=== PATIENT | male | born 1945 | race Caucasian/White ===

== ENCOUNTER 2017-03-11 15:00 | Emergency (ER) | payer OTHER, MEDICAID ==
[2017-03-11] MEDS ORDERED: NS 500 ML IV ONE (16:29)
--- NOTE | 2017-03-11 16:36 | EDPHY ---
H & P Time Seen by Provider: 03/11/17 16:11 HPI/ROS: HPI Fatigue. 71-year-old male by private vehicle. History of colorectal cancer as well as melanoma. His oncologist is Dr. Carney. He was placed on finasteride about a year and half ago. As side effects of this medication he had weakness, low energy and generalized fatigue. He was placed on hydrocodone and testosterone has a remedy for this. He reports that after a week or 2 of this medication he started feeling much better. Had normal energy and was doing great in the gym working out. He reports that over the last 4 days despite taking his testosterone which she takes once weekly by injection as well as hydrocortisone he has been feeling low on energy and fatigued especially when trying to work out. He is concerned about his testosterone levels. ROS: Constitutional: No fever, no chills. As above. Eyes: No discharge. No changes in vision. ENT: No sore throat. No nasal congestion or rhinorrhea. Respiratory: No cough. No shortness of breath. Cardiac: No chest pain, no palpitations. Gastrointestinal: No abdominal pain, no vomiting, no diarrhea. Genitourinary: No hematuria. No dysuria or increased frequency with urination. Musculoskeletal: No back pain. No neck pain. No myalgias or arthralgias. Skin: No rashes. Neurological: No headache. No focal weakness or altered sensation. Past medical history: As above. Depression. Social history: Nonsmoker. Denies alcohol. Here by himself. Physical Exam: General Appearance: Alert, no distress. This patient is responding to questions appropriately and in full sentences. This patient appears well- hydrated and well-nourished. Eyes: Pupils equal and round no pallor or injection. No lid edema, erythema or injection. Respiratory: There are no retractions, lungs are clear to auscultation with good air movement bilaterally. Cardiovascular: Regular rate and rhythm. No murmur. Gastrointestinal: Abdomen is soft and nontender, no masses, bowel sounds normal. No focal tenderness at McBurney's point. No Payne sign. Neurological: Motor sensory function is grossly intact. Cranial nerves are normal. Gait is normal. Skin: Warm and dry, no rashes. Musculoskeletal: Neck is supple and nontender. Extremities are symmetrical. All joints range without pain or impingement. Psychiatric: No agitation. No depression. Database: EKG: EKG time is 4:55 p.m.; EKG shows a narrow complex normal sinus rhythm with a ventricular rate of 76. The AK, QRS, QT intervals are within normal limits. There are no ST-T wave changes indicative of ischemic or injury pattern. No evidence of right heart strain. Interpreted by me. Imaging: Procedures: Emergency department course: IV placed. Patient was placed on a receiving tank operator. Vital signs reviewed and are normal. Plan will be to check his CBC for anemia or other significant abnormalities as well as electrolytes. I will also obtain a EKG. Assuming these are unremarkable, plan will be to have him follow up with his primary care physician or oncologist, Dr. Carney to have his free and total testosterone levels checked. 5:45 p.m., patient re-evaluated. Resting comfortably at this time. Results of laboratory work discussed with him. Plan will be to have him follow up with his oncologist or primary care physician as above for recheck of his creatinine as well as his free and total testosterone levels. He is in agreement with this plan. Return to emergency department precautions reviewed with him. All of his questions were answered. He was discharged in good condition. Differential Diagnosis: The differential diagnosis on this patient includes but is not limited to medication reaction. Hypothyroid, hypokalemic periodic paralysis, acute coronary syndrome, atrial fibrillation, congestive heart failure, anemia unlikely. This represents a partial list of diagnoses considered. These considerations are based on history, physical exam, past history, reassessment and diagnostic testing. Smoking Status: Never smoked Constitutional: Initial Vital Signs Temperature (C) 37 C 03/11/17 15:06 Heart Rate 87 03/11/17 15:06 Respiratory Rate 17 03/11/17 15:06 Blood Pressure 131/93 H 03/11/17 15:06 O2 Sat (%) 92 03/11/17 15:06 O2 Delivery Mode Room Air Allergies/Adverse Reactions: No Known Allergies Allergy (Verified 03/11/17 15:05) Home Medications: Medication Instructions Recorded Effexor 03/12/16 LaMICtal 03/12/16 Wellbutrin Sr 03/12/16 Zyprexa 03/12/16 Doxycycline Hyclate 03/11/17 Finasteride 03/11/17 Hydrocortisone 03/11/17 TESTOSTERONE 03/11/17 Medical Decision Making - Data Points Laboratory Results: Laboratory Results 03/11/17 16:50 03/11/17 16:50 Medications Given: Discontinued Medications Sodium Chloride (Ns) 500 mls @ 1,000 mls/hr IV EDNOW ONE PRN Reason: Protocol Stop: 03/11/17 16:58 Last Admin: 03/11/17 16:51 Dose: 500 mls Departure - Departure Disposition: Home, Routine, Self-Care Clinical Impression: Fatigue Condition: Good Instructions: Fatigue (ED) Additional Instructions: Read and follow provided instructions. Follow-up with your primary care physician at [facility] or with her oncologist in in the next week for re-evaluation and as discussed, recheck of your creatinine which is a measure of your kidney function as well as your free and total testosterone levels. Continue taking her medications as prescribed. Return to the emergency department for worsening symptoms or other serious concerns. Referrals: [facility] [Other] - As per Instructions Colby Carney MD [Medical Doctor] - As per Instructions
--- NOTE | 2017-03-11 16:57 | CPEKG ---
Heart Rate: 76 RR Interval: 789 P-R Interval: 172 QRSD Interval: 96 QT Interval: 380 QTC Interval: 428 P Preston: 64 QRS Preston: 52 T Wave Preston: 51 EKG Severity - NORMAL ECG - EKG Impression: SINUS RHYTHM Electronically Signed By: Chi Wylie 11-Mar-2017 22:59:16
[2017-03-11 17:06] LABS: % IMMATURE GRANULYOCYTES 0.4 % (0.0-1.1); ABSOLUTE IMMATURE GRANULOCYTES 0.03 10^3/uL (0.00-0.10); ADD DIFF? NO; ADD MORPH? NO; ADD SCAN? NO; ATYPICAL LYMPHOCYTE FLAG 0 (0-99); FRAGMENT RBC FLAG 0 (0-99); HEMOGLOBIN 16.2 g/dL (13.7-17.5); LEFT SHIFT FLG 0 (0-99); LIPEMIA HEMOLYSIS FLAG 90 (0-99); MEAN CELL HEMOGLOBIN CONCENTR. 33.8 g/dL (32.4-36.7); MEAN CELL VOLUME 88.9 fL (81.5-99.8); MEAN PLATELET VOLUME 9.6 fL (8.7-11.7); PLATELET CLUMPS FLAG 20 (0-99); PLATELET COUNT 243 10^3/uL (150-400); RED CELL DISTRIBUTION WIDTH 15.5 % (11.5-15.2)
[2017-03-11 17:19] LABS: ANION GAP 8 mEq/L (8-16); CALCIUM 9.2 mg/dL (8.5-10.4); CARBON DIOXIDE 25 mEq/l (22-31); CHLORIDE 101 mEq/L (97-110); GLUCOSE 88 mg/dL (70-100); POTASSIUM 4.8 mEq/L (3.5-5.2); SODIUM 134 mEq/L (134-144)
[2017-03-11 17:32] LABS: CREATININE 1.5 mg/dL (0.7-1.3); GLOMERULAR FILTRATION RATE 46
[2017-03-11 17:51] VITALS: BP 137/79; PULSE 78; RESP 18; TEMP 98; O2SAT 97
== END 2017-03-11 17:50 | disposition home or self-care (01) ==
DX: R53.83 Other fatigue (principal); E86.9 Volume depletion, unspecified

== ENCOUNTER → 2018-01-20 | Outpatient (CLI) | payer OTHER, MEDICAID ==
[~2018-01-20] MED LIST: GADOBUTROL 10 ML VIAL IVP ONE
== END ==
LOC: FIMAGING 13:46
PROVIDERS: ATTEND Internal Medicine Hematology & Oncology
DX: M25.552 Pain in left hip (principal); R93.8 Abnormal findings on diagnostic imaging of other specified body structures; M16.12 Unilateral primary osteoarthritis, left hip; M25.452 Effusion, left hip; M76.02 Gluteal tendinitis, left hip; M51.36 Other intervertebral disc degeneration, lumbar region; Z85.820 Personal history of malignant melanoma of skin
CPT/HCPCS: 73723; A9585; 82565-PO

== ENCOUNTER 2018-01-21 07:28 | Day surgery (SDC) | payer OTHER, MEDICAID ==
[2018-01-21] MEDS ORDERED: NALOXONE HCL 0.4 MG/ML INJ ONE (07:45)
[2018-01-21] MEDS ORDERED: FLUMAZENIL 0.5 MG/5 ML MDV IVP ONE (07:45)
[2018-01-21] MEDS ORDERED: fentaNYL 100 MCG/2 ML INJ ONE (07:46)
[2018-01-21] MEDS ORDERED: MIDAZOLAM 2 MG/2 ML VIAL ONE (07:47)
[2018-01-21] MEDS ORDERED: GLUCAGON HCL 1 MG VIAL IVP PRN (07:49)
[2018-01-21] MEDS ORDERED: HEPARIN 10,000 UNIT/10 ML MDV (1,000 UNIT/ML) IVP PRN (07:49)
[2018-01-21] MEDS ORDERED: MIDAZOLAM 2 MG/2 ML VIAL IVP PRN (07:49)
[2018-01-21] MEDS ORDERED: MEPERIDINE 25 MG/ML SYR IVP PRN (07:49)
[2018-01-21] MEDS ORDERED: PROTAMINE SULFATE 50 MG/5 ML VIAL IVP PRN (07:49)
[2018-01-21] MEDS ORDERED: fentaNYL 100 MCG/2 ML INJ IVP PRN (07:49)
[2018-01-21] MEDS ORDERED: NALOXONE HCL 0.4 MG/ML INJ IVP PRN (07:49)
[2018-01-21] MEDS ORDERED: FLUMAZENIL 0.5 MG/5 ML MDV IVP PRN (07:49)
[2018-01-21] MEDS ORDERED: ALTEPLASE 2 MG VIAL IVP PRN (07:49)
[2018-01-21] MEDS ORDERED: NS 1,000 ML IV SCH (08:00)
[2018-01-21 08:42] LABS: INR 1.05 (0.83-1.16); PROTIME(PATIENT) 13.9 SEC (12.0-15.0)
[2018-01-21] MEDS ORDERED: LIDOCAINE 1% 300 MG/30 ML SDV ONE (08:56)
[2018-01-21 12:18] VITALS: BP 142/83
== END 2018-01-21 13:37 | disposition home or self-care (01) ==
LOC: FIMAGING 07:28
PROVIDERS: ATTEND Internal Medicine Hematology & Oncology
PROC: 0BBJ3ZX Excision of Left Lower Lung Lobe, Percutaneous Approach, Diagnostic (ICD-10-PCS; principal; 2018-01-21 10:08)
DX: R91.1 Solitary pulmonary nodule (principal)
CPT/HCPCS: J2250; J2310; J3010

== ENCOUNTER → 2018-03-05 | Outpatient (CLI) | payer OTHER, MEDICAID | DX: J98.4 Other disorders of lung (principal); C78.00 Secondary malignant neoplasm of unspecified lung; Z45.2 Encounter for adjustment and management of vascular access device ==

== ENCOUNTER → 2018-03-19 | Outpatient (CLI) | payer OTHER, MEDICAID | LOC: FIMAGING 15:25 | PROVIDERS: ATTEND Surgery | DX: J90 Pleural effusion, not elsewhere classified (principal); J98.11 Atelectasis; Z85.118 Personal history of other malignant neoplasm of bronchus and lung; Z90.2 Acquired absence of lung [part of] ==

== ENCOUNTER → 2018-05-01 | Outpatient (CLI) | payer OTHER, MEDICAID | LOC: FIMAGING 15:12 | PROVIDERS: ATTEND Family Medicine | DX: M89.8X8 Other specified disorders of bone, other site (principal); M24.852 Other specific joint derangements of left hip, not elsewhere classified; M16.12 Unilateral primary osteoarthritis, left hip; M25.452 Effusion, left hip ==

== ENCOUNTER → 2018-05-07 | Outpatient (CLI) | payer OTHER, MEDICAID | LOC: FIMAGING 14:56 | PROVIDERS: ATTEND Family Medicine | DX: M16.12 Unilateral primary osteoarthritis, left hip (principal) ==

== ENCOUNTER 2018-08-27 07:57 | Inpatient (IN) | payer OTHER, MEDICAID ==
--- NOTE | 2018-08-27 06:19 | PDHPUP ---
History & Physical Update H&P update statement: This history and physical update is based on an assessment of the patient which was completed after admission or registration (within 24 hours), but prior to the surgery/procedure. H&P update: H&P reviewed & patient examined, no change in patient's condition since H&P completed
[~2018-08-27 07:57] MED LIST changes: -GADOBUTROL 10 ML VIAL IVP ONE; +ROPIVACAINE 0.2% 80 MG, EPINEPHrine 0.2 MG, KETOROLAC TROMETHAMINE 30 MG in SYRINGE 0 ML IU ONE; +TRANEXAMIC ACID 3,000 MG in NS (SYRINGE) 50 ML IRR ONE; +TRANEXAMIC ACID 3,000 MG/50 ML BAG IRR ONE
[2018-08-27] MEDS ORDERED: ACETAMINOPHEN 325 MG TAB PO ONE (08:11)
[2018-08-27] MEDS ORDERED: DEXAMETHASONE 4 MG/ML VIAL IVP ONE (08:11)
[2018-08-27] MEDS ORDERED: FAMOTIDINE 20 MG TAB PO ONE (08:11)
[2018-08-27] MEDS ORDERED: ceFAZolin 2 GM/DEXTROSE 100 ML IV ONE (08:11)
[2018-08-27] MEDS ORDERED: LR 1,000 ML IV ONE (08:12)
--- NOTE | 2018-08-27 08:22 | PDANEPAE ---
ANE History of Present Illness OA of hip ANE Past Medical History - Cardiovascular History Hx Hypertension: No Hx Arrhythmias: No Hx Chest Pain: No Hx Coronary Artery / Peripheral Vascular Disease: No Hx CHF / Valvular Disease: No Hx Palpitations: No - Pulmonary History Hx COPD: No Hx Asthma/Reactive Airway Disease: No Hx Recent Upper Respiratory Infection: No Hx Oxygen in Use at Home: No Hx Sleep Apnea: No Sleep Apnea Screening Result - Last Documented: Negative Pulmonary History Comment: MELANOMA RESECTION L LOBE LUNG - Neurologic History Hx Cerebrovascular Accident: No Hx Seizures: No Hx Dementia: No - Endocrine History Hx Diabetes: No Hypothyroid: No Hyperthyroid: No Obesity: no - Renal History Hx Renal Disorders: No - Liver History Hx Hepatic Disorders: No - Neurological & Psychiatric Hx Hx Neurological and Psychiatric Disorders: Yes Neurological / Psychiatric History Comment: Depression-medicated - Cancer History Hx Cancer: Yes Cancer History Comment: Rectal cancer-radiation. Melanoma - Congenital Disorder History Hx Congenital Disorders: No - GI History GERD: no Hx Gastrointestinal Disorders: No - Other Health History Other Health History: on steroids post chemo - Chronic Pain History Chronic Pain: Yes (left hip) - Surgical History Prior Surgeries: B/l shoulder reattachments of tendons. Crushed right wrist repair. b/l legs/ankles broken-surgical. repair. melanoma removed from groin ANE Review of Systems Review of systems is: negative Review of Systems: - Exercise capacity METS (RN): 5 METS ANE Patient History - Allergies Allergies/Adverse Reactions: No Known Allergies Allergy (Verified 08/27/18 08:47) - Home Medications Home medications: home medication list seen and reviewed Home Medications: OLANZapine [Zyprexa] 5 mg PO HS 03/12/16 [Last Taken 08/26/18] buPROPion XL [Wellbutrin 150mg XL] 150 mg PO DAILY 03/12/16 [Last Taken 08/27/18 ] lamoTRIgine [LamICTAL 100 MG (*)] 200 mg PO HS 03/12/16 [Last Taken 08/26/18] Hydrocortisone [Cortef 10 mg (*)] 10 mg PO BID 03/11/17 [Last Taken 08/27/18] Venlafaxine Xr [Effexor Xr] 300 mg PO DAILY 02/18/18 [Last Taken 08/27/18] Ibuprofen [Ibu] 1 tab PO Q6H 08/01/18 [Last Taken 08/13/18] - NPO status NPO Status: no food or drink >8 hours - Anes Hx Anes Hx: no prior problems - Smoking Hx Smoking Status: Never smoked - Alcohol Use Alcohol Use: Rarely - Family Anes Hx Family Anes Hx: none Family Hx Anesthesia Complications: None ANE Labs/Vital Signs - Vital Signs Height: 177.8 cm Weight: 86.183 kg ANE Physical Exam - Airway Neck exam: FROM Mallampati Score: Class 2 Mouth exam: normal dental/mouth exam - Pulmonary Pulmonary: no respiratory distress, clear to auscultation - Cardiovascular Cardiovascular: regular rate and rhythym, no murmur, rub, or gallop - ASA Status ASA Status: II ANE Anesthesia Plan Anesthesia Plan: spinal
[2018-08-27] MEDS ORDERED: HYDROCORTISONE 100 MG/2 ML VIAL ONE (10:16)
[2018-08-27] MEDS ORDERED: BUPIVACAINE/DEXTROSE 7.5MG/ML 2 ML SPINAL AMP SP ONE (10:17)
[2018-08-27] MEDS ORDERED: ONDANSETRON DISINTEGRATING 4 MG TAB PO PRN (10:40)
[2018-08-27] MEDS ORDERED: oxyCODONE IR 5 MG TAB PO PRN (10:40)
[2018-08-27] MEDS ORDERED: POLYETHYLENE GLYCOL 3350 17 GM PKT PO PRN (10:40)
[2018-08-27] MEDS ORDERED: PROMETHAZINE HCL 25 MG SUPPR PR PRN (10:40)
[2018-08-27] MEDS ORDERED: CYCLOBENZAPRINE 10 MG TAB PO PRN (10:40)
[2018-08-27] MEDS ORDERED: TEMAZEPAM 15 MG CAP PO PRN (10:40)
[2018-08-27] MEDS ORDERED: MAGNESIUM HYDROXIDE 30 ML UDCUP PO PRN (10:40)
[2018-08-27] MEDS ORDERED: LACTULOSE 20 GM/30 ML UDCUP PO PRN (10:40)
[2018-08-27] MEDS ORDERED: PROMETHAZINE HCL 25 MG/ML INJ IVP PRN (10:40)
[2018-08-27] MEDS ORDERED: BISACODYL 10 MG SUPP PR PRN (10:40)
[2018-08-27] MEDS ORDERED: DIPHENOXYLATE/ATROPINE LOMOTIL 1 TAB PO PRN (10:40)
[2018-08-27] MEDS ORDERED: METOCLOPRAMIDE 10 MG/2 ML VIAL IVP PRN (10:40)
[2018-08-27] MEDS ORDERED: diphenhydrAMINE 25 MG CAP PO PRN (10:40)
[2018-08-27] MEDS ORDERED: ONDANSETRON 4 MG/2 ML VIAL IVP PRN (10:40)
[2018-08-27] MEDS ORDERED: LR 1,000 ML IV SCH (11:00)
[2018-08-27] MEDS ORDERED: fentaNYL 100 MCG/2 ML INJ IVP PRN (11:01)
[2018-08-27] MEDS ORDERED: DIAZEPAM 5 MG/ML 1 ML SYR IVP PRN (11:01)
[2018-08-27] MEDS ORDERED: HYDROmorphONE/DILAUDID 2 MG/ML INJ IVP PRN (11:01)
[2018-08-27] MEDS ORDERED: LABETALOL HCL 5 MG/ML 20 ML MDV IVP PRN (11:01)
[2018-08-27] MEDS ORDERED: NALOXONE HCL 0.4 MG/ML INJ IVP PRN (11:01)
--- NOTE | 2018-08-27 11:01 | POSTANESTH ---
Post Anesthetic Evaluation Cardiovascular Status: Normal, Stable Respiratory Status: Normal, Stable Level of Consciousness/Mental Status: Can Participate in Eval Pain Control: Adequate, Prn Tx Ordered Nausea/Vomiting Control: Adequate, Prn Tx Ordered Complications Possibly Related to Anesthesia: None Noted
--- NOTE | 2018-08-27 11:22 | PDMN ---
Medical Necessity Medical necessity: [facility] S560 Hip Arthroplasty, A-2days: 73 yo s/p L FINA, MC IP only
--- NOTE | 2018-08-27 11:30 | POSTOPPROG ---
Post Op Note Date of Operation: 08/27/18 Surgeon: Genny Foreman Work Ticket Distributor: Carmencita Foreman and Natalia Martinez PA-C Anesthesiologist: Dr. Mata Anesthesia: Spinal Pre-op Diagnosis: left hip OA Post-op Diagnosis: same Indication: left hip pain Procedure: left FINA Findings: severe OA of left hip Inf/Abcess present in the surg proc area at time of surgery?: No EBL: 50-100
[2018-08-27] MEDS: ACETAMINOPHEN 325 MG TAB PO SCH ×2 (12:50→18:09)
[2018-08-27] MEDS ORDERED: HYDROCORTISONE 100 MG/2 ML VIAL IVP ONE (16:00)
[2018-08-27] MEDS ORDERED: WARFARIN SODIUM 5 MG TAB PO SCH (16:00)
[2018-08-27] MEDS: ceFAZolin 2 GM/DEXTROSE 100 ML IV SCH (18:10)
[2018-08-27] MEDS: HYDROCORTISONE 10 MG TAB PO SCH (20:04)
[2018-08-27] MEDS: SENNOSIDES/DOCUSATE SODIUM TAB PO SCH (20:11)
[2018-08-27] MEDS: FAMOTIDINE 20 MG TAB PO SCH (20:11)
[2018-08-27] MEDS ORDERED: lamoTRIgine 100 MG TAB PO SCH (21:00)
[2018-08-27] MEDS ORDERED: OLANZapine 5 MG TAB PO SCH (21:00)
[2018-08-28] MEDS: ceFAZolin 2 GM/DEXTROSE 100 ML IV SCH (00:56)
[2018-08-28] MEDS: ACETAMINOPHEN 325 MG TAB PO SCH ×3 (00:56→08:42)
[2018-08-28 05:40] LABS: INR 1.18 (0.83-1.16); PROTIME(PATIENT) 15.2 SEC (12.0-15.0)
[2018-08-28] MEDS: HYDROCORTISONE 10 MG TAB PO SCH (07:55)
[2018-08-28] MEDS: FAMOTIDINE 20 MG TAB PO SCH (07:55)
[2018-08-28] MEDS: SENNOSIDES/DOCUSATE SODIUM TAB PO SCH (08:00)
[2018-08-28 08:13] VITALS: BP 152/86
--- NOTE | 2018-08-28 08:49 | SOAPPROG ---
SOAP Progress Note Assessment/Plan: Assessment: Patient is doing well POD 1 s/p LTHA Pain management: pain is well controlled on oral pain meds. VTE ppx: Lovenox injections x5 days and coumadin. Follow up for bloodwork to check INR on Friday 09/01 Anemia: level is expected initially postop. Asymptomatic. Continue to monitor D/c planning:patient has done much better than anticipated. Patient is stable, BP stable, pain well controlled and patient is eager for discharge to home. May d/c to home today pending release from PT Plan: 08/28/18 08:46 Subjective: No nausea, vomiting, chest pain or shortness of breath. Pain well-controlled. Objective: Vital Signs Temp Pulse Resp BP Pulse Ox 36.4 C 92 16 152/86 H 93 08/28/18 08:00 08/28/18 08:00 08/28/18 08:00 08/28/18 08:00 08/28/18 08:00 Laboratory Results 08/28/18 05:04 08/27/18 08/28/18 08/29/18 05:59 05:59 05:59 Intake Total 950 300 Output Total 675 300 Balance 275 0 PT 15.2 SEC (12.0-15.0) H 08/28/18 05:04 INR 1.18 (0.83-1.16) H 08/28/18 05:04 LLE: incision dressing clean and dry, positive PF/DF, NVI ICD10 Worksheet Patient Problems: Problems Problem Status Onset Primary osteoarthritis of left hip Acute Dehydration Acute Dizziness Acute Hypoxia Acute Lung mass Acute
[2018-08-28] MEDS ORDERED: ENOXAPARIN 40 MG/0.4 ML SYR SC SCH (09:00)
[2018-08-28] MEDS ORDERED: VENLAFAXINE XR 150 MG CAP PO SCH (09:00)
[2018-08-28] MEDS ORDERED: buPROPion XL 150 MG TAB PO SCH (09:00)
--- NOTE | 2018-08-28 09:02 | GOP ---
[f rep st] OPERATIVE REPORT DATE OF OPERATION: 08/27/2018 SURGEON: Shyanne Foreman MD SENIOR ADMINISTRATIVE SERVICES OFFICER: 1. Carmencita Foreman, PAC. 2. BERONICA Martinez. ANESTHESIA: Spinal. PREOPERATIVE DIAGNOSIS: Left hip osteoarthritis. POSTOPERATIVE DIAGNOSIS: Left hip osteoarthritis. PROCEDURE PERFORMED: Total hip arthroplasty with x-ray. FINDINGS: ESTIMATED BLOOD LOSS: 200 cc. INDICATIONS: The patient has progressively worsening arthritis of the hip which has failed medical m anagement. The patient understands the treatment options including continued non-operative care and has selected surgical intervention. The patient has decided to undergo total hip arthroplasty via th e direct anterior approach, understanding the risks of the procedure including, but not limited to, n eurovascular injury, infection, persistent pain, component wear and loosening, deep venous thrombosis , pulmonary embolism, limb length inequality, hip instability (including dislocation), and intra-oper ative fractures. DESCRIPTION OF PROCEDURE: After proper identification of the patient including verification and mona ing the surgical site, the patient was brought to the operating room and placed in the supine positio n. All bony prominences were well padded. Anesthesia was induced without complication and intraveno us prophylactic antibiotics were administered prior to skin incision. The operative leg was placed in the Trumpf Arch table extension and the well leg in a Yellofin leg ho lder. The patient was prepped and draped in the usual sterile fashion. The C-arm was draped for int ra-operative fluoroscopy to check acetabular position, femoral component position including leg lengt h and femoral offset. Attention was then drawn to surgical exposure of the hip. An incision was made with a #10 Bard Johnny r blade starting 3 cm lateral and 3 cm distal to the anterior superior iliac spine measuring 8-10 cm and coursing distally toward the greater trochanter. The skin and subcutaneous tissues were divided sharply down to the fascia tessy. The fascia tessy was incised in line with the skin incision exposing the underlying tensor fascia tessy muscle. The muscle was bluntly elevated from the fascia and the f irst extracapsular Cobra retractor was placed laterally at the junction of the superior femoral neck and greater trochanter. The lateral femoral circumflex vessels were identified, cauterized, and divi ded with the Aquamantys bipolar cautery. The deep investing fascia of the TFL was divided to allow p vince mobilization of the muscle preventing damage during the retraction. The reflected head of the rectus femoris muscle was elevated off the anterior hip capsule and a medial Cobra retractor was plac ed just proximal to the lesser trochanter. The anterior capsulotomy was made sharply from the superolateral acetabulum to the saddle junction of the superior femoral neck and greater trochanter, then coursing inferomedial towards the lesser troc hanter. The retractors were then placed in the intracapsular position for femoral neck osteotomy. C orresponding to pre-operative templating, the osteotomy was made with the oscillating saw carefully p rotecting the greater trochanter and soft tissues. The femoral head was removed from the acetabulum with a corkscrew and confirmed to be severely arthritic with exposed bone, deformity and osteophytes. Similar findings were confirmed in the acetabulum. The Arch table extension was then placed in 40 degrees external rotation. Attention was then drawn to the acetabular preparation. After placement of the anterior and posterio r Cobra retractors outside the labrum and intracapsular, the circumferential labrum was removed sharp ly. The foveal contents were then removed and hemostasis obtained with cautery. The first reamer selected was sized using the removed femoral head. Reaming began with medialization and then commenced in 2 mm increments at 45 degrees of abduction and 15 degrees of anteversion using fluoroscopic navigation. Reaming ceased 1 mm less than the definitive acetabular component and kalee esponded to the pre-operative templating. The final acetabular component was inserted using fluorosc opy to achieve proper orientation yielding excellent purchase and stability in the acetabulum. The f inal acetabular liner was then placed and its seating confirmed. Attention was then turned to the femur. The Arch table extension was placed in extension and adducti on, delivering the osteotomized femoral neck into the wound. A 2-pronged femoral elevator was placed at the calcar and another at the tip of the greater trochanter. The posterolateral capsule was rele ased with cautery allowing mobilization of the femur lateral and anterior for preparation. The exter nal rotators were visualized and preserved. A curette and rongeur were used to open the starting poi nt for broaching. Serial broaching started with the #0 broach and ended with the broach that exhibit ed excellent fit in the proximal femur. A change in pitch during mallet strikes was accompanied by t he inability to advance the broach any further. The trial reduction was performed and fluoroscopic n avigation was utilized to check limb length. Adjustments were made to equalize limb length according ly. After the final trials were accepted they were removed and the wound was copiously lavaged. The femo ral component was seated to the same depth as the final broach and the femoral head was impacted onto the clean trunnion. The hip was then reduced for the final time and once more fluoroscopy was used to check that limb length equality was achieved. The wound was irrigated and closed in layers, the fascia tessy with 2-0 Quill, the subcutaneous tissue with 2-0 Quill, and the skin with Dermabond. Sterile dressings were applied. Final sharps and spon ge counts were accurate. The patient was then transferred to a hospital bed and brought [facility] the [facility] in stable condition. IMPLANTS: Accolade II size 6 at 127. Acetabular component is a Trident II, 56 mm. Liner is a Tride nt X3, 36 mm. Head is a Biolox delta 36 mm -5. /[id number]/MODL
--- NOTE | 2018-08-28 09:22 | GDS ---
[f rep st] DISCHARGE SUMMARY ADMISSION DIAGNOSIS: Left hip osteoarthritis. DISCHARGE DIAGNOSIS: Left hip osteoarthritis. PROCEDURE: Left total hip arthroplasty. VTE PROPHYLAXIS: Recommend Coumadin and Lovenox. BRIEF DESCRIPTION OF HOSPITAL STAY: Patient was admitted for an elective joint arthroplasty. The pa tient tolerated the procedure well and has passed physical therapy. The patient was given appropriat e antibiotic prophylaxis and venous thromboembolism prophylaxis. The patient's pain was well control led on oral pain medication, patient was holding down food, and had urinated. Decision was made to d ischarge the patient. The patient was given post-operative prescriptions pre-operatively. PLAN: Please follow up as scheduled with Dr. Foreman's office, September 18 at 2:45 p.m. /[id number]/MODL
--- NOTE | 2018-08-28 11:02 | ASMTLACE ---
JORGEE Length of stay for Answers: 2 days current admission Acuity / Level of Answers: Yes Care: Did the patient have an inpatient admission? Comorbidities - select Answers: Opioid dependence all that apply / Chronic pain # of Emergency department Answers: 1-2 visits in the last 6 months Social determinants Answers: Mental health diagnosis (anxiety, depression, pers onality disorders, etc.) Score: 13 Date Signed: 08/28/2018 11:01 AM Electronically Signed By:ALIYA Pryor
== END 2018-08-28 09:44 | disposition home or self-care (01) | DRG 470 ==
LOC: F3N 07:57
PROVIDERS: ADMIT Orthopaedic Surgery; ATTEND Orthopaedic Surgery
PROC: 0SRB04A Replacement of Left Hip Joint with Ceramic on Polyethylene Synthetic Substitute, Uncemented, Open Approach (ICD-10-PCS; principal; 2018-08-27 10:00)
DX: M16.12 Unilateral primary osteoarthritis, left hip (principal); F32.9 Major depressive disorder, single episode, unspecified; Z85.118 Personal history of other malignant neoplasm of bronchus and lung; Z85.048 Personal history of other malignant neoplasm of rectum, rectosigmoid junction, and anus
CPT/HCPCS: 97116-GP; 97161-GP; J0171; J0690; J1100; J1650; J1720; J1885; J2795